=== PATIENT | male | born 1980 | race African-American/Black ===

== ENCOUNTER 2018-05-18 15:55 | Emergency (ER) | payer OTHER ==
[~2018-05-18] VITALS: Ht 185.4 cm; Wt 142.0 kg
[~2018-05-18 15:55] MED LIST: AUG500 PO; FLA500 PO; FUROSEMIDE40 MG PO; GABAPENTIN100 M2 PO; HUMALOG100 U/ML; HYD25 PO; KEFLEX500 MG PO; LAC PO; LANTUS SOLOS100 U/M1 SQ; LISINOPRIL/HYDR1 TA1 PO; LOP100 PO; LOP50 PO; NEURONTIN600 MG PO; NOR10 PO; NOR10T PO; OMEPRAZOLE DR20 M1 PO; SOMA350 MG PO; TIZANIDINE HCL4 MG PO; VITAMIN D NATU400 IU PO; ZESTRIL5 MG PO
[2018-05-18 16:01] VITALS: Ht 185.4 cm; Wt 142.0 kg
[2018-05-18 17:10] VITALS: BP 178/95
== END 2018-05-18 17:43 | disposition home or self-care (01) ==
LOC: ED 15:55
DX: J20.9 Acute bronchitis, unspecified (principal); R55 Syncope and collapse; E11.40 Type 2 diabetes mellitus with diabetic neuropathy, unspecified; I10 Essential (primary) hypertension; E78.00 Pure hypercholesterolemia, unspecified
CPT/HCPCS: J7030

== ENCOUNTER 2019-05-16 15:39 | Emergency (ER) | payer OTHER ==
[~2019-05-16] VITALS: Ht 182.9 cm; Wt 142.9 kg
[2019-05-16 15:51] VITALS: Ht 182.9 cm; Wt 142.9 kg
--- NOTE | 2019-05-16 16:33 | NUR ---
AT BEDSIDE FOR MSE. PT REPORTING HIS NOSE WAS BLEEDING A LOT MORE THAN BEFORE AND "I STARTED CHOKING ON MY BLOOD AND COUGHING IT UP." PER FAMILY AND PATIENT HE IS STARTING DIALYSIS AT A FACILITY THIS WEEK. PER PT HAS BEEN DIAGNOSED WITH ANEMIA. PT IS ALERT AND ORIENTED, BREATHING IS UNLABORED AND EVEN.
--- NOTE | 2019-05-16 16:36 | NUR ---
LAB AT BEDSIDE
--- NOTE | 2019-05-16 16:37 | NUR ---
PT HAS DIALYSIS ACCESS TO LEFT WRIST.
--- NOTE | 2019-05-16 16:52 | NUR ---
LAB AT BEDSIDE
[2019-05-16 17:07] LABS: BASOPHIL % 0.9 % (0-2); PLATELET COUNT 301 x10^3mcL (130-400)
[2019-05-16 17:10] LABS: RED CELL DISTRIBUTION WIDTH 15.9 % (11.5-14.5)
[2019-05-16 17:22] LABS: BILIRUBIN TOTAL 0.2 mg/dL (0.20-1.00); CALCIUM 6.2 mg/dL (8.5-10.1); CARBON DIOXIDE 17.6 mmol/L (21-32); POTASSIUM SERUM 4.7 mmol/L (3.5-5.1); TOTAL PROTEIN, SERUM 6.3 g/dL (6.4-8.2)
[2019-05-16 17:24] LABS: ALBUMIN 2.8 g/dL (3.4-5.0)
--- NOTE | 2019-05-16 18:39 | NUR ---
DR MACKAY AT BEDSIDE SPEAKING WITH PT AND FAMILY.
--- NOTE | 2019-05-16 18:43 | NUR ---
DR MACKAY SPEAKING WITH DR ORTEGA ABOUT PLAN OF CARE.
[2019-05-16 19:51] VITALS: BP 169/93
== END 2019-05-16 19:51 | disposition home or self-care (01) ==
LOC: ED 15:39 → DU 18:00 → ED 19:51
PROVIDERS: Emergency Medicine
DX: I13.2 Hypertensive heart and chronic kidney disease with heart failure and with stage 5 chronic kidney disease, or end stage renal disease (principal); I50.9 Heart failure, unspecified; N18.6 End stage renal disease; E11.22 Type 2 diabetes mellitus with diabetic chronic kidney disease; R04.0 Epistaxis; E78.00 Pure hypercholesterolemia, unspecified; Z99.2 Dependence on renal dialysis
CPT/HCPCS: J1940; Q0092

== ENCOUNTER 2019-05-27 15:07 | Emergency (ER) | payer OTHER ==
[~2019-05-27] VITALS: Ht 185.4 cm; Wt 136.1 kg
[2019-05-27 15:15] VITALS: Ht 185.4 cm; Wt 136.1 kg
[2019-05-27 18:32] VITALS: BP 153/90
== END 2019-05-27 18:32 | disposition home or self-care (01) ==
LOC: ED 15:07
DX: L02.211 Cutaneous abscess of abdominal wall (principal); I12.9 Hypertensive chronic kidney disease with stage 1 through stage 4 chronic kidney disease, or unspecified chronic kidney disease; E11.22 Type 2 diabetes mellitus with diabetic chronic kidney disease; N18.9 Chronic kidney disease, unspecified; Z99.2 Dependence on renal dialysis; Z98.890 Other specified postprocedural states
CPT/HCPCS: 82962; J0690; J2001

== ENCOUNTER 2019-08-30 20:24 | Emergency (ER) | payer OTHER ==
[~2019-08-30] VITALS: Ht 188 cm; Wt 137.0 kg
[2019-08-30 20:30] VITALS: Ht 188 cm; Wt 137.0 kg
[2019-08-30 22:43] VITALS: BP 155/92
== END 2019-08-30 22:43 | disposition home or self-care (01) ==
LOC: ED 20:24
DX: J34.0 Abscess, furuncle and carbuncle of nose (principal); I10 Essential (primary) hypertension; E11.9 Type 2 diabetes mellitus without complications; E78.00 Pure hypercholesterolemia, unspecified; Z98.890 Other specified postprocedural states
CPT/HCPCS: 82962

== ENCOUNTER 2019-09-04 20:41 | Inpatient (IN) | payer OTHER ==
[~2019-09-04] VITALS: Ht 193 cm; Wt 135.4 kg
[2019-09-04 20:53] VITALS: Ht 193 cm; Wt 135.4 kg
[2019-09-04 22:20] LABS: BASOPHIL % 1.2 % (0-2)
[2019-09-04 22:23] LABS: PLATELET COUNT 465 x10^3mcL (130-400); RED CELL DISTRIBUTION WIDTH 15.8 % (11.5-14.5)
[2019-09-04 22:38] LABS: ALBUMIN 3.4 g/dL (3.4-5.0); BILIRUBIN TOTAL 0.22 mg/dL (0.20-1.00); CALCIUM 7.7 mg/dL (8.5-10.1); CARBON DIOXIDE 17.9 mmol/L (21-32); POTASSIUM SERUM 4.8 mmol/L (3.5-5.1)
[2019-09-04 22:50] LABS: CREATININE SERUM 12.7 mg/dL (0.7-1.3)
[2019-09-05] MEDS ORDERED: ACID REDUCER20 MG (02:44)
[2019-09-05] MEDS ORDERED: NORCO 10-325 T1 EACH PO (02:44)
[2019-09-05] MEDS ORDERED: ZANAFLEX CAPSULE2 MG PO (02:44)
[2019-09-05] MEDS ORDERED: AZOR 10-20 MG1 EACH PO (02:44)
[2019-09-05] MEDS ORDERED: METOPROLOL ER-1 EACH PO (02:44)
[2019-09-05] MEDS ORDERED: HYDRALAZINE10 MG PO (02:45)
[2019-09-05] MEDS ORDERED: LANTI SQ (02:45)
[2019-09-05] MEDS ORDERED: GRALISE600 M2 PO (02:45)
[2019-09-05] MEDS ORDERED: HUMALOG100 UNIT/1 (02:45)
[2019-09-05] MEDS ORDERED: PROL PO (02:45)
[2019-09-05 03:05] LABS: MAGNESIUM 2.7 mg/dL (1.8-2.4); PHOSPHOROUS 8.2 mg/dL (2.5-4.9)
[2019-09-05 03:14] LABS: FREE T4 0.95 ng/dL (0.76-1.46); FREE THYROXINE INDEX 2.1 ug/dL (1.4-4.5); T4(THYROXINE) 6.9 ug/dL (4.7-13.3)
[2019-09-05 03:33] LABS: CHOLESTEROL/HDL RATIO 4.1
[2019-09-05 04:19] LABS: T3 TOTAL 0.54 ng/mL
[2019-09-05 04:25] LABS: microscopic required? YES; urine erythrocyte 1+ (NEGATIVE)
[2019-09-05 04:41] LABS: AMPHETAMINE QUAL UR NONE DETECTED (See below)
[2019-09-05 04:51] VITALS: BP 108/67
[2019-09-05 07:02] LABS: BASOPHIL % 1.2 % (0-2)
[2019-09-05 07:22] LABS: PLATELET COUNT 424 x10^3mcL (130-400); RED CELL DISTRIBUTION WIDTH 16.3 % (11.5-14.5)
[2019-09-05 07:35] LABS: CALCIUM 7.2 mg/dL (8.5-10.1); CARBON DIOXIDE 16.1 mmol/L (21-32); MAGNESIUM 2.6 mg/dL (1.8-2.4); POTASSIUM SERUM 4.4 mmol/L (3.5-5.1)
[2019-09-05 07:39] LABS: CREATININE SERUM 12.3 mg/dL (0.7-1.3)
[2019-09-05 08:57] VITALS: BP 137/78
[2019-09-05 09:20] VITALS: BP 108/67
[2019-09-05 13:34] VITALS: BP 152/83
[2019-09-05 17:00] VITALS: BP 138/83
[2019-09-05 20:37] VITALS: BP 150/76
[2019-09-06 06:06] VITALS: BP 155/84
[2019-09-06 06:32] LABS: BASOPHIL % 1.1 % (0-2)
[2019-09-06 07:06] LABS: PLATELET COUNT 405 x10^3mcL (130-400); RED CELL DISTRIBUTION WIDTH 15.7 % (11.5-14.5)
[2019-09-06 07:55] VITALS: BP 145/84
[2019-09-06 08:21] LABS: CALCIUM 7.7 mg/dL (8.5-10.1); CARBON DIOXIDE 20.6 mmol/L (21-32); MAGNESIUM 2.1 mg/dL (1.8-2.4); PHOSPHOROUS 6.9 mg/dL (2.5-4.9); POTASSIUM SERUM 4.1 mmol/L (3.5-5.1)
[2019-09-06 08:27] LABS: CREATININE SERUM 9.7 mg/dL (0.7-1.3)
[2019-09-06 13:13] VITALS: BP 156/76
[2019-09-06 16:27] VITALS: BP 145/84
[2019-09-06 20:29] VITALS: BP 155/83
[2019-09-07 06:11] VITALS: BP 158/85
[2019-09-07 06:30] LABS: BASOPHIL % 0.8 % (0-2)
[2019-09-07 06:50] LABS: PLATELET COUNT 431 x10^3mcL (130-400); RED CELL DISTRIBUTION WIDTH 16.4 % (11.5-14.5)
[2019-09-07 07:05] LABS: CALCIUM 8.1 mg/dL (8.5-10.1); CARBON DIOXIDE 22.4 mmol/L (21-32)
[2019-09-07 07:23] LABS: CREATININE SERUM 10.5 mg/dL (0.7-1.3)
[2019-09-07 08:00] VITALS: BP 145/85
[2019-09-07 13:00] VITALS: BP 172/84
[2019-09-07] MEDS ORDERED: APLICARE ANTIS118 M3 TOP (13:02)
[2019-09-07] MEDS ORDERED: BACO TOP (13:02)
[2019-09-07] MEDS ORDERED: GABAPENTIN100 M2 PO (13:04)
[2019-09-07] MEDS ORDERED: ZESTRIL5 MG PO (13:04)
[2019-09-07] MEDS ORDERED: ZITHROMAX TRI-500 MG PO (13:05)
[2019-09-07 16:00] VITALS: BP 169/89
[2019-09-07 20:16] VITALS: BP 152/92
[2019-09-07 20:20] VITALS: BP 152/92
== END 2019-09-07 21:26 | disposition home or self-care (01) | DRG 139 ==
LOC: ED 20:41 → DU 09-05 02:32
PROVIDERS: Emergency Medicine; Internal Medicine; ADMIT Family Medicine
PROC: 5A1D70Z Performance of Urinary Filtration, Intermittent, Less than 6 Hours Per Day (ICD-10-PCS; principal; 2019-09-05)
PROC: 5A1D70Z Performance of Urinary Filtration, Intermittent, Less than 6 Hours Per Day (ICD-10-PCS; 2019-09-07)
DX: J18.9 Pneumonia, unspecified organism (principal); E11.22 Type 2 diabetes mellitus with diabetic chronic kidney disease; E11.42 Type 2 diabetes mellitus with diabetic polyneuropathy; E11.65 Type 2 diabetes mellitus with hyperglycemia; E87.1 Hypo-osmolality and hyponatremia; I12.0 Hypertensive chronic kidney disease with stage 5 chronic kidney disease or end stage renal disease; N18.6 End stage renal disease; E78.00 Pure hypercholesterolemia, unspecified; E83.39 Other disorders of phosphorus metabolism; D63.1 Anemia in chronic kidney disease; E83.51 Hypocalcemia; E78.5 Hyperlipidemia, unspecified; Z99.2 Dependence on renal dialysis; Z79.4 Long term (current) use of insulin; Z68.41 Body mass index [BMI] 40.0-44.9, adult; Z87.891 Personal history of nicotine dependence; Z79.82 Long term (current) use of aspirin; Z82.49 Family history of ischemic heart disease and other diseases of the circulatory system; Z83.3 Family history of diabetes mellitus
CPT/HCPCS: 82962; 83880; 84439; 87804; G0378; J0456; J0696; J0885-EC; J7030; J7040; J7060; J7620; J7626